=== PATIENT | male | born 1975 | race Caucasian/White ===

== ENCOUNTER 2019-12-04 08:58 | Outpatient (CLI) | payer OTHER, SELFPAY ==
[2019-12-04 09:16] LABS: Hematocrit 43.9 % (42.0-52.0); Hemoglobin 14.8 g/dL (14.0-18.0); Mean Corpuscular HGB Conc 33.7 g/dl (32-36); Mean Corpuscular Hemoglobin 29.8 pg (26-34); Mean Corpuscular Volume 88.3 fl (80-100); Mean Platelet Volume 9.2 fl (7.4-10.4); Platelet Count Result 200 k/mm3 (150-375); Red Blood Count 4.97 M/mm3 (4.6-6.20); Red Cell Distribution Width 12.2 % (11.5-14.5); White Blood Count 6.3 K/mm3 (4.5-10.0)
[2019-12-04 09:28] LABS: Blood Urea Nitrogen 16 mg/dL (9-20); Calcium 8.8 mg/dL (8.4-10.2); Carbon Dioxide 30 mmol/L (22-30); Chloride 102 mmol/L (98-107); Estimated Glomerular Filt Rate > 60; Glucose 92 mg/dL (75-110); Potassium 4.3 mmol/L (3.4-5.0); Sodium 138 mmol/L (137-145)
== END 2019-12-04 08:59 | disposition home or self-care (01) ==
PROVIDERS: PCP Family Medicine; Visit Provider Physician Assistant Medical
DX: N28.9 Disorder of kidney and ureter, unspecified (principal); D72.819 Decreased white blood cell count, unspecified
CPT/HCPCS: 36415; 80048; 85027

== ENCOUNTER 2020-09-29 11:48 | Outpatient (NON) | payer OTHER, SELFPAY ==
[2020-09-29 14:58] LABS: Influenza Control Positive
== END 2020-09-29 11:49 ==
LOC: ANHCOVIDDT 11:49
PROVIDERS: PCP Family Medicine; Visit Provider Nurse Practitioner Family
DX: R68.89 Other general symptoms and signs (principal); M79.10 Myalgia, unspecified site; R50.9 Fever, unspecified; J06.9 Acute upper respiratory infection, unspecified
CPT/HCPCS: 87502; 87804

== ENCOUNTER 2020-11-08 08:25 | Outpatient (CLI) | payer OTHER, SELFPAY ==
[2020-11-08 09:00] LABS: Alanine Aminotransferase 34 U/L (4-50); Albumin Level 4.4 g/dL (3.5-5.1); Alkaline Phosphatase 49 U/L (38-126); Anion Gap 6 mmol/L (8-16); Aspartate Amino Transferase 41 U/L (17-59); Bilirubin,Total 0.8 mg/dL (0.2-1.3); Blood Urea Nitrogen 16 mg/dL (9-20); Calcium 9.5 mg/dL (8.4-10.2); Carbon Dioxide 33 mmol/L (22-30); Chloride 100 mmol/L (98-107); Cholesterol 160 mg/dL (0-200); Estimated Glomerular Filt Rate > 60; Glucose 97 mg/dL (75-110); HDL Direct 47 mg/dL; Potassium 3.9 mmol/L (3.4-5.0); Sodium 139 mmol/L (137-145); Triglycerides 73 mg/dL (<150)
[2020-11-08 09:11] LABS: LDL Cholesterol Direct 84 mg/dL
[2020-11-08 09:28] LABS: Prostate Specific Antigen 0.2 ng/mL (< OR = 4.0)
== END 2020-11-08 08:26 | disposition home or self-care (01) ==
PROVIDERS: PCP Family Medicine; Visit Provider Physician Assistant Medical
DX: R07.89 Other chest pain (principal); Z12.5 Encounter for screening for malignant neoplasm of prostate; Z80.42 Family history of malignant neoplasm of prostate; Z13.220 Encounter for screening for lipoid disorders
CPT/HCPCS: 36415; 80053; 80061; 84153; 84443; G0103

== ENCOUNTER 2021-07-21 07:06 | Outpatient (CLI) | payer OTHER, SELFPAY ==
[2021-07-21 07:36] LABS: Anion Gap 10 mmol/L (8-16); Blood Urea Nitrogen 18 mg/dL (9-20); Calcium 9.6 mg/dL (8.4-10.2); Carbon Dioxide 31 mmol/L (22-30); Chloride 101 mmol/L (98-107); Cholesterol 179 mg/dL (0-200); Estimated Glomerular Filt Rate 59; Glucose 103 mg/dL (65-110); HDL Direct 46 mg/dL; Potassium 4.1 mmol/L (3.4-5.0); Sodium 142 mmol/L (137-145); Triglycerides 80 mg/dL (<150)
[2021-07-21 07:46] LABS: LDL Cholesterol Direct 93 mg/dL
[2021-07-21 08:03] LABS: Prostate Specific Antigen 0.3 ng/mL (< OR = 4.0)
== END 2021-07-21 07:07 | disposition home or self-care (01) ==
LOC: ANHLAB 07:07
PROVIDERS: PCP Family Medicine; Visit Provider Nurse Practitioner Family
DX: Z13.29 Encounter for screening for other suspected endocrine disorder (principal); Z12.5 Encounter for screening for malignant neoplasm of prostate; Z13.220 Encounter for screening for lipoid disorders; Z13.6 Encounter for screening for cardiovascular disorders; Z13.1 Encounter for screening for diabetes mellitus
CPT/HCPCS: 36415; 80048; 80061; 84153; 84443

== ENCOUNTER 2021-09-18 09:38 | Outpatient (CLI) | payer OTHER, SELFPAY ==
--- NOTE | 2021-09-18 11:00 | NEURO_ITS ---
Impression: # Complains of numbness. # Right Carpal Tunnel Syndrome. # Right ulnar neuropathy across the elbow. # Normal needle/EMG exam. # Clinical correlation recommended. Nerve Conduction Studies Anti Sensory Summary Table Stim Site NR Peak (ms) P-T Amp (?V) Site1 Site2 Delta-P (ms) Dist (cm) Osmany (m/s) Left Median Anti Sensory (2-3nd Digit) Wrist 3.0 62.3 Wrist 2-3nd Digit 3.0 14.0 47 Wrist 3.2 50.5 Wrist 2-3nd Digit 3.0 14.0 47 Right Median Anti Sensory (2-3nd Digit) Wrist 3.1 24.4 Wrist 2-3nd Digit 3.1 14.0 45 Wrist 3.1 50.6 Wrist 2-3nd Digit 3.1 14.0 45 Left Radial Anti Sensory (Base 1st Digit) Wrist 2.4 13.2 Wrist Base 1st Digit 2.4 0.0 Right Radial Anti Sensory (Base 1st Digit) Wrist 2.4 25.7 Wrist Base 1st Digit 2.4 0.0 Left Ulnar Anti Sensory (5th Digit) Wrist 2.7 39.4 Wrist 5th Digit 2.7 14.0 52 Right Ulnar Anti Sensory (5th Digit) Wrist 2.5 32.2 Wrist 5th Digit 2.5 14.0 56 Motor Summary Table Stim Site NR Onset (ms) O-P Amp (mV) Site1 Site2 Delta-0 (ms) Dist (cm) Osmany (m/s) Left Median Motor (Abd Poll Brev) Wrist 3.6 2.0 Elbow Wrist 4.8 29.0 60 Elbow 8.4 1.8 Right Median Motor (Abd Poll Brev) Wrist 4.3 2.0 Elbow Wrist 4.9 29.0 59 Elbow 9.2 1.6 Left Ulnar Motor (Abd Dig Minimi) Wrist 2.7 7.5 A Elbow Wrist 5.3 31.0 58 A Elbow 8.0 6.0 Right Ulnar Motor (Abd Dig Minimi) Wrist 2.7 7.6 A Elbow Wrist 5.6 30.0 54 A Elbow 8.3 6.1 B Elbow Wrist 3.9 24.0 62 B Elbow 6.6 5.1 F Wave Studies NR F-Lat (ms) L-R F-Lat (ms) Left Median (Mrkrs) (Abd Poll Brev) 27.53 0.29 Right Median (Mrkrs) (Abd Poll Brev) 27.82 0.29 Left Ulnar (Mrkrs) (Abd Dig Min) 28.97 0.10 Right Ulnar (Mrkrs) (Abd Dig Min) 28.88 0.10 EMG Side Muscle Nerve Root Ins Act Fibs Amp Dur Recrt Comment Right 1stDorInt Ulnar C8-T1 Nml Nml Nml Nml Nml Right Ext Indicis Radial (Post Int) C7-8 Nml Nml Nml Nml Nml Right Ext Digitorum Radial (Post Int) C7-8 Nml Nml Nml Nml Nml Right BrachioRad Radial C5-6 Nml Nml Nml Nml Nml Right PronatorTeres Median C6-7 Nml Nml Nml Nml Nml Right Abd Poll Brev Median C8-T1 Nml Nml Nml Nml Nml Left 1stDorInt Ulnar C8-T1 Nml Nml Nml Nml Nml Left Ext Indicis Radial (Post Int) C7-8 Nml Nml Nml Nml Nml Left Ext Digitorum Radial (Post Int) C7-8 Nml Nml Nml Nml Nml Left BrachioRad Radial C5-6 Nml Nml Nml Nml Nml Left PronatorTeres Median C6-7 Nml Nml Nml Nml Nml Left Abd Poll Brev Median C8-T1 Nml Nml Nml Nml Nml Right ABD Dig Min Ulnar C8-T1 Nml Nml Nml Nml Nml Left ABD Dig Min Ulnar C8-T1 Nml Nml Nml Nml Nml MTDD
== END 2021-09-18 09:39 | disposition home or self-care (01) ==
PROVIDERS: PCP Family Medicine; Visit Provider Nurse Practitioner Family
DX: G56.01 Carpal tunnel syndrome, right upper limb (principal); G56.21 Lesion of ulnar nerve, right upper limb
CPT/HCPCS: 95886; 95911

== ENCOUNTER → 2022-04-05 10:28 | Outpatient (CLI) | payer OTHER, SELFPAY ==
--- NOTE | ~2022-04-05 | XR_ITS ---
EXAMINATION: XR wrist LT min 3V DATE: 04/05/2022 11:00 INDICATION: Left wrist pain TECHNIQUE: Posteroanterior, ulnar deviation, oblique, and lateral views of the left wrist were obtain ed. COMPARISON: none FINDINGS: Bone alignment is normal. No fracture. Joint spaces are normal. Soft tissues are unremarkable. IMPRESSION: 1. Negative left wrist radiographs. Reviewed, dictated and finalized at location B.
== END ==
PROVIDERS: PCP Family Medicine; Visit Provider Nurse Practitioner Family
DX: M25.532 Pain in left wrist (principal)
CPT/HCPCS: 73110

== ENCOUNTER 2022-07-16 14:31 | Outpatient (CLI) | payer OTHER, SELFPAY ==
--- NOTE | ~2022-07-16 | MR_ITS ---
EXAMINATION: MR wrist LT wo con DATE: 07/16/2022 15:15 INDICATION: Left wrist pain TECHNIQUE: Magnetic resonance imaging (MRI) of the left wrist was performed without intravenous contr ast. Sequences performed include axial PD-weighted FSE and PD-weighted FS FSE, coronal PD-weighted FS FSE and T1-weighted SE, and sagittal PD-weighted FS FSE and PD-weighted FSE. COMPARISON: None FINDINGS: Intrinsic ligaments: Tiny perforation of the central membranous component of the scapholunate ligament. The more physiolog ically significant dorsal and volar components remain intact. The lunotriquetral ligament is normal. Triangular fibrocartilage complex (TFCC): There is a tear of the central fibrocartilaginous disc of the triangular fibrocartilage complex. The radial, foveal and ulnar styloid attachments along with the dorsal and volar radioulnar ligaments are normal. The ulnar collateral ligament, ulnotriquetral ligament and meniscal homologue are normal. Th e extensor carpi ulnaris tendon sheath is normal. Extensor wrist: Regions of magic angle artifact at the level of the wrist joint along the extensor carpi ulnaris and extensor digitorum longus tendons. Extensor tendons of the wrist are otherwise normal. No tenosynovit is. Flexor wrist: The flexor tendons of the wrist are normal. No abnormality in the carpal tunnel with normal median n erve. Guyon's canal: Guyon's canal including the ulnar nerve and artery are normal. Bones/other: Normal marrow signal. No fracture, erosions, avascular necrosis or abnormal marrow replacing process. Joint spaces are normal with no focal cartilage defects appreciated. IMPRESSION: 1. Tear of the central fibrocartilaginous disc of the triangular fibrocartilage complex. 2. Small perforation of the central membranous component of the scapholunate ligament which is of brandi btful clinical significance given the intact appearance of the dorsal and volar components of the lig ament. Reviewed, dictated and finalized at location A. IMPRESSION: 1. Tear of the central fibrocartilaginous disc of the triangular fibrocartilage complex. 2. Small perforation of the central membranous component of the scapholunate li gament which is of doubtful clinical significance given the intact appearance o f the dorsal and volar components of the ligament.
== END 2022-07-16 14:32 | disposition home or self-care (01) ==
PROVIDERS: PCP Family Medicine; Visit Provider Nurse Practitioner Family
DX: M25.532 Pain in left wrist (principal)
CPT/HCPCS: 73221

== ENCOUNTER 2022-09-02 08:08 | Outpatient (CLI) | payer OTHER, SELFPAY ==
[2022-09-02 09:17] LABS: Anion Gap 5 mmol/L (8-16); Blood Urea Nitrogen 13 mg/dL (9-20); Calcium 8.8 mg/dL (8.4-10.2); Carbon Dioxide 32 mmol/L (22-30); Chloride 103 mmol/L (98-107); Cholesterol 152 mg/dL (0-200); Estimated Glomerular Filt Rate > 60; Glucose 96 mg/dL (65-110); HDL Direct 46 mg/dL; Potassium 4.1 mmol/L (3.4-5.0); Sodium 140 mmol/L (137-145); Triglycerides 96 mg/dL (<150)
[2022-09-02 09:28] LABS: LDL Cholesterol Direct 69 mg/dL
[2022-09-02 09:46] LABS: Prostate Specific Antigen 0.3 ng/mL (< OR = 4.0)
== END 2022-09-02 08:09 | disposition home or self-care (01) ==
LOC: ANHLAB 08:09
PROVIDERS: PCP Family Medicine; Visit Provider Nurse Practitioner Family
DX: Z13.1 Encounter for screening for diabetes mellitus (principal); Z13.220 Encounter for screening for lipoid disorders; Z12.5 Encounter for screening for malignant neoplasm of prostate; Z13.29 Encounter for screening for other suspected endocrine disorder
CPT/HCPCS: 36415; 80048; 80061; 84153; 84443; G0103

== ENCOUNTER 2023-08-12 09:52 | Emergency (ER) | payer OTHER, SELFPAY ==
--- NOTE | ~2023-08-12 | XR_ITS ---
XR shoulder RT min 2V 08/12/2023 10:58 Indication: Right shoulder pain Procedure: 4 views right shoulder Comparison: No prior studies for comparison. Findings: There is anatomic alignment. No fracture, subluxation or dislocation. No significant soft t issue abnormality. No foreign bodies. Impression: 1: No acute fracture. Reviewed, dictated and finalized at location L. HERMAL INSTALLER Impression: 1: No acute fracture.
[2023-08-12 10:03] VITALS: BP 142/83; PULSE 64; RESP 16; TEMP 36.4; O2SAT 100
--- NOTE | 2023-08-12 10:49 | ED.GENADULT ---
HPI - General Adult General Chief complaint: Extremity Injury, Upper Stated complaint: R SHOULDER WORK INJURY Time Seen by Provider: 08/12/23 10:37 History of Present Illness HPI narrative: 48-year-old male presenting wrist department for evaluation of right shoulder pain. 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 the patient states the prisoner kept dropping his weight causing it to be supported by the patient's right shoulder. Patient denies any immediate pain from the incident but states this morning he had increased pain and discomfort. Patient reports pain is worsened with active motion of his right arm said Related Data Allergies Allergy/AdvReac Type Severity Reaction Status Date / Time Sulfa (Sulfonamide Allergy Unknown HIVES Verified 08/12/23 10:37 Antibiotics) sulfamethizole Allergy Unknown Unknown Verified 08/12/23 10:37 trimethoprim Allergy Unknown Unknown Verified 08/12/23 10:37 Review of Systems Review of Systems: All systems reviewed & are unremarkable except as noted in HPI and below PMFSH Past Medical History Medical History BMI 29.0-29.9,adult BMI 30.0-30.9,adult CTS (carpal tunnel syndrome) De Quervain's tenosynovitis, left Surgical History Surgical History History of carpal tunnel release right side- carpal tunnel & cubital tunnel release- 2021 History of facial surgery zygomatic arch reduction 2007 History of hand surgery left hand- ring finger ligament repair 2016 History of hip surgery arthroscopy- 2018 History of vasectomy 2013 Family History Family History Father Hypertension Family history of diabetes mellitus in first degree relative Cancer Diabetes mellitus Heart disease Mother Hypertension Family history of liver disease Diabetes mellitus Sibling No problems noted. 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 Gender identity (if verbalized by the patient): Male Exam Narrative: APPEARANCE: Well appearing, no pain, no distress, well-nourished. HEAD: normocephalic, atraumatic. EYES: PERRLA/EOMI, conjunctivae clear. NOSE: Normal no drainage EARS:TMS clear with good light reflex. THROAT: Pharynx clear, no exudate. NECK: Supple. No adenopathy, no masses. RESPIRATORY: Airway patent, respirations nonlabored. Clear to auscultation bilaterally, no rales, rhonchi, wheezing. CARDIOVASCULAR: Regular rate and rhythm without murmurs rubs or gallops. ABDOMINAL: Soft, nontender, nondistended, normal bowel sounds MUSCULOSKELETAL: Decreased range of motion of right shoulder, normal passive range of motion of the right shoulder, painful active range of motion of the right shoulder NEURO: Alert. Cranial nerves II through XII intact. Good gait. Good coordination SKIN: Warm, dry. Normal Color Course Course Emergency Course: 48-year-old male presents ED for evaluation of right shoulder pain x-ray was negative for acute fracture dislocation. Suspect internal rotator cuff injury. Patient was provided a sling for comfort update on the results of the x-rays. Patient was also encouraged on c
== END 2023-08-12 11:19 | disposition home or self-care (01) ==
LOC: ANHED 11:17
PROVIDERS: Emergency Provider Emergency Medicine; PCP Family Medicine
DX: S46.911A Strain of unspecified muscle, fascia and tendon at shoulder and upper arm level, right arm, initial encounter (principal); X50.0XXA Overexertion from strenuous movement or load, initial encounter
CPT/HCPCS: 73030; 99283; A4565

== ENCOUNTER → 2023-08-27 10:45 | Outpatient (CLI) | payer OTHER, SELFPAY ==
--- NOTE | ~2023-08-27 | MR_ITS ---
MRI of the right shoulder Technique: Axial proton-density fat-sat images, coronal proton density fat-sat and T2 fat-sat images, and sagittal T1-weighted and T2 fat-sat images were acquired. Clinical History: Rotator cuff tear Findings: There is [id number] AC joint degenerative change. Coracoclavicular, coracoacromial, a nd coracohumeral ligaments are intact. There is nonspecific edematous change at the rotator interval region. There is probable focal moderate tendinosis of the distal supraspinatus tendon insertion versus possi ble low to moderate grade partial thickness articular surface tear. No infraspinatus tear identified. Subscapularis tendon is intact. Tendon of the long head of the biceps is intact. No labral tear identified. Inferior glenohumeral ligament is intact, with mild thickening. No effusion or degenerative change of the glenohumeral joint. There is minimal fluid in the subacromial/subdeltoid bursa. No muscle atroph y or edema. Impression: Rotator interval edema and mild thickening of the inferior glenohumeral ligament. Correlate for adhes ivy capsulitis. Probable focal moderate tendinosis of the distal supraspinatus tendon rather than low to moderate gra de focal partial thickness tear. Minimal subacromial/subdeltoid bursitis. Reviewed, dictated and finalized at [facility]. ON CANDY MAKER Impression: Rotator interval edema and mild thickening of the inferior glenohumeral ligamen t. Correlate for adhesive capsulitis. Probable focal moderate tendinosis of the distal supraspinatus tendon rather th an low to moderate grade focal partial thickness tear. Minimal subacromial/subdeltoid bursitis.
== END ==
PROVIDERS: Visit Provider Orthopaedic Surgery
DX: M75.101 Unspecified rotator cuff tear or rupture of right shoulder, not specified as traumatic (principal)
CPT/HCPCS: 73221

== ENCOUNTER 2023-11-26 12:53 | Outpatient (CLI) | payer OTHER, SELFPAY ==
--- NOTE | ~2023-11-26 | MR_ITS ---
EXAMINATION: MR shoulder RT w con DATE: 11/26/2023 15:36 INDICATION: Strain of muscles and tendons of the right shoulder. Right shoulder pain. TECHNIQUE: Magnetic resonance imaging (MRI) of the right shoulder was performed without intravenous c ontrast after intra-articular injection of contrast (MR arthrogram). COMPARISON: Right shoulder MRI 08/27/2023, radiographs 08/12/2023 FINDINGS: Coracoacromial arch: The acromion undersurface is curved in morphology (type II). There is severe acromioclavicular joint osteoarthritis including inferiorly directed osteophytes. There is moderate subacromial/subdeltoid bu rsitis. Rotator cuff: There is moderate supraspinatus tendinopathy. There is a bursal sided partial-thickness tear of supra spinatus tendon measuring 5 mm anterior to posterior by 3 mm proximal to distal by 50% tendon thickne ss. There is mild infraspinatus tendinopathy. Teres minor tendon is normal. There is mild subscapular is tendinopathy. There is no asymmetric fatty atrophy of the rotator cuff muscle bellies. Biceps tendon and glenoid labrum: Biceps tendon is in bicipital groove. Intra-articular biceps tendon is normal. There is a tear of sup erior labrum from 11:00 to 12:00 (SLAP tear). Fluid: The glenohumeral joint is well distended by contrast. There is contrast in subacromial/subdeltoid bur sa, likely from direct injection. Bones/cartilage: There is cartilage surface irregularity of glenoid and humeral head. IMPRESSION: 1. Bursal-sided, partial-thickness tear of supraspinatus tendon. 2. Mild glenohumeral joint chondrosis. SLAP tear. 3. Severe acromioclavicular joint osteoarthritis. Reviewed, dictated and finalized at location E. Y PICKER MACHINE OPERATOR
--- NOTE | ~2023-11-26 | XR_ITS ---
EXAMINATION: XR fl inj shoulder RT - MR/CT DATE: 11/26/2023 13:52 INDICATION: Right rotator cuff strain TECHNIQUE: A time-out was performed to verify the patient's name, date of , and procedure to b e performed. The procedure including the risks, benefits, and alternatives was discussed with the pat ient. Risks discussed included bleeding and infection. The patient understood the risks and agreed to proceed. The skin overlying the right glenohumeral joint was prepped and draped in usual sterile fa shion. Anesthetic was administered with 1% lidocaine subcutaneously. A 22 G needle was advanced und er fluoroscopic guidance into the joint. Injection of 1 mL of Omnipaque 240 confirmed intra-articula r position of the needle. Subsequently, injectate consisting of 12 mL of 2:1:1 mixture of sterile sa line:Omnipaque 240:1% lidocaine mixed 200:1 with 529 mg/mL Multihance gadolinium contrast was injecte d with intra-articular administration confirmed with intermittent fluoroscopy. The needle was removed and the entry site was cleaned and dressed. There were no immediate complications. Fluoroscopy expo sure time was 3.2 minutes. The total number of images was 6. Total DAP was 0.807 mGycm^2 FINDINGS: Real-time fluoroscopy demonstrates the needle in the right glenohumeral joint. IMPRESSION: 1. Successful right glenohumeral joint injection of dilute gadolinium contrast mixture subsequent MRI arthrogram which will be dictated separately. Reviewed, dictated and finalized at location A. BUILDER
== END 2023-11-26 12:54 | disposition home or self-care (01) ==
LOC: ANHIMG 12:54
PROVIDERS: PCP Family Medicine; Visit Provider Orthopaedic Surgery
DX: S46.011A Strain of muscle(s) and tendon(s) of the rotator cuff of right shoulder, initial encounter (principal); X58.XXXA Exposure to other specified factors, initial encounter; M19.011 Primary osteoarthritis, right shoulder
CPT/HCPCS: 23350; 73222; 77002; A9577

== ENCOUNTER 2024-03-04 04:15 | Day surgery (SDC) | payer OTHER, SELFPAY ==
[2024-02-23 13:15] VITALS: BMI 29.9
--- NOTE | 2024-02-23 13:16 | PC.NURSE ---
Report to the Outpatient Waiting Room, entrance under the green pavilion located off [facility], at time _0600_ on date _[id number]_. Planned Procedure Time: _0730_. Time changes happen often and if your time is changed the preop area will call you the afternoon before. - You and your visitor will be asked to self-screen and do not enter if you have any COVID symptoms. - A mask is optional within the hospital at this time. Patients may have clear liquids (water, carbonated beverages, clear teas, apple juice) until 3 hours prior to surgery with a maximum of 20 ounces. - No food from midnight until time of surgery Take the following medications with a SIP of water the morning of surgery: __None DO NOT STOP ANY OF YOUR OTHER PRESCRIPTION MEDICATIONS PRIOR TO SURGERY ?EXCEPT THE FOLLOWING Medications to discontinue per physician __Stop Meloxicam 02-26-2024, Stop vitamins [id number] Please no make-up, nail armenian, hairspray, perfume, deodorant, or body powder the day of surgery. No jewelry (including any body piercings) or valuables the day of surgery, leave them at home. Please take a shower or bath the night before, or the morning of, surgery with an antibacterial soap. Wear comfortable, loose fitting clothing. - Jewelry must be removed prior to entering the operating room. Rings and piercings that are not removed may be cut off. - The hospital will not accept responsibility for valuables. - Please leave all valuables, including medications, at home the day of surgery. If you are going home after surgery, a licensed route delivery driver must drive you home. - NO public transportation without another adult if you receive anesthesia. - We recommend that an adult stay with you for 24 hours following discharge. - We also recommend that you do not drive, make important decision, drink alcoholic beverages, or take any drugs that were not prescribed by your health care provider for at least 24 hours after your discharge time. Follow any additional instructions given to you from your surgeon. If you or anyone in your household have experienced Covid symptoms in the past week, please notify your surgeon or the nurse liaison at the phone number below for possible testing. Telephone instructions given to _Jose__and asked if any additional questions and then verbalized understanding. Patient advised to call surgeon office or pre surgery nurse liaison [phone] if any additional questions.
--- NOTE | 2024-03-03 12:50 | PM.IMHP ---
H&P: HPI History of Present Illness Date/Time: 03/03/24 12:50 Chief Complaint: Right shoulder pain Narrative: 48-year-old 6.5 months status post right shoulder injury at work. Pain right shoulder. Weakness and inability to lift. MRI shows labral and rotator cuff tear. No improvement with therapy, activity modification, time. Review of Systems Constitutional: Constitutional: Denies fever(s) Eyes: Eyes: Denies blurry vision ENT: Reports Normal hearing present Cardiovascular: Cardiovascular: Denies chest pain and Denies dyspnea Respiratory: Respiratory: Denies dyspnea and Denies wheezing Gastrointestinal: Gastrointestinal: Denies abdominal pain Genitourinary: Genitourinary: Denies urinary urgency Musculoskeletal: Musculoskeletal: Reports as per HPI and Denies numbness Integumentary/Breasts: Skin/Breast: Denies changing lesions and Denies sores Neurologic: Reports Normal hearing present, Denies behavioral changes, Denies confusion, Denies numbness and Denies convulsions Psychiatric: Psychiatric: Denies behavioral changes, Denies confusion and Denies hallucinations Endocrine: Endocrine: Denies heat intolerance Hematologic/Lymphatic: Hematologic/Lymphatic: Denies easy bleeding Allergic/Immunologic: Allergic/Immunologic: Denies wheezing PMF Past Medical History Medical History CTS (carpal tunnel syndrome) De Quervain's tenosynovitis, left Hip pain, left Labral tear of long head of right biceps tendon Myalgia Right shoulder pain Rotator cuff tear, right Strain of rotator cuff of right shoulder Surgical History Surgical History History of carpal tunnel release right side- carpal tunnel & cubital tunnel release- 2021 History of facial surgery zygomatic arch reduction 2008 History of hand surgery left hand- ring finger ligament repair 2016 History of hip surgery arthroscopy- 2018 History of vasectomy 2013 Family History Family History Father Hypertension Family history of diabetes mellitus in first degree relative Cancer Diabetes mellitus Heart disease Mother Hypertension Family history of liver disease Diabetes mellitus Sibling No problems noted. 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 Gender identity (if verbalized by the patient): Male Spiritual care concerns: No Meds Home Medications and Allergies Home Medications Medication Instructions Recorded Confirmed Type meloxicam 15 mg tablet 15 mg PO DAILY #90 tabs 12/17/23 02/23/24 Rx cetirizine 10 mg tablet (Zyrtec) 10 mg PO DAILY 02/23/24 02/23/24 History cholecalciferol (vitamin D3) 25 25 mcg PO DAILY 02/23/24 02/23/24 History mcg (1,000 unit) tablet (Vitamin D3) multivitamin with minerals 1 tablet PO DAILY 02/23/24 02/23/24 History Allergies Allergy/AdvReac Type Severity Reaction Status Date / Time Sulfa (Sulfonamide Allergy Unknown HIVES Verified 02/23/24 13:07 Antibiotics) sulfamethizole Allergy Unknown Unknown Verified 02/23/24 13:07 trimethoprim Allergy Unknown Unknown Verified 02/23/24 13:07 Exam Const: Genera
[2024-03-04] VITALS (10 sets, daily range): BP systolic 90–143; BP diastolic 61–96; PULSE 63–79; RESP 12–19; TEMP 36.2–36.8; O2SAT 97–100
[2024-03-04] MEDS: ACETAMINOPHEN 500 MG TABLET 1000 MG PO (07:00)
[2024-03-04] MEDS: KETOROLAC 15 MG/ML VIAL (*BKC) IV PUSH (07:00)
[2024-03-04] MEDS: LACTATED RINGERS 1,000 ML 30 ML IV CONT ×2 (07:00→10:49)
--- NOTE | 2024-03-04 07:04 | WPDANESEPPF ---
Anes - Initial Pre Proc Eval Procedure: Operation Date: 03/04/24 07:30 Proposed Procedures p Right Shoulder Arthroscopy with Debridement, Rotator Cuff and Labral Repair, Proceed as indicated - Priyank Alexander MD Date/Time: 03/04/24 07:04 Surgeon: Priyank Alexander MD Pre Op Diagnosis: Rt Rot Cuff Tear, Labral Tear, Shoulder pain Patient Data Age: 48 Gender: M Height: 1.83 m Weight: 100 kg Allergies Allergy/AdvReac Type Severity Reaction Status Date / Time Sulfa (Sulfonamide Allergy Unknown HIVES Verified 03/04/24 07:16 Antibiotics) sulfamethizole Allergy Unknown Unknown Verified 03/04/24 07:16 trimethoprim Allergy Unknown Unknown Verified 03/04/24 07:16 Home Medications Medication Instructions Recorded Confirmed Type meloxicam 15 mg tablet 15 mg PO DAILY #90 tabs 12/17/23 03/04/24 Rx cetirizine 10 mg tablet (Zyrtec) 10 mg PO DAILY 02/23/24 02/23/24 History cholecalciferol (vitamin D3) 25 25 mcg PO DAILY 02/23/24 03/04/24 History mcg (1,000 unit) tablet (Vitamin D3) multivitamin with minerals 1 tablet PO DAILY 02/23/24 03/04/24 History Patient hx anesthesia problems: other (One time in the long past, pt woke up combative. ) Family hx anesthesia problems: none Results Review: All pre-operative results and documents have been reviewed as part of the pre-operative evaluation. [facility] Past Medical History Medical History CTS (carpal tunnel syndrome) De Quervain's tenosynovitis, left Hip pain, left Labral tear of long head of right biceps tendon Myalgia Right shoulder pain Rotator cuff tear, right Strain of rotator cuff of right shoulder Surgical History Surgical History History of carpal tunnel release right side- carpal tunnel & cubital tunnel release- 2021 History of facial surgery zygomatic arch reduction 2007 History of hand surgery left hand- ring finger ligament repair 2016 History of hip surgery arthroscopy- 2018 History of vasectomy 2013 Family History Family History Father Hypertension Family history of diabetes mellitus in first degree relative Cancer Diabetes mellitus Heart disease Mother Hypertension Family history of liver disease Diabetes mellitus Sibling No problems noted. Social History Social History Smoking status: Never smoker Second hand tobacco smoke exposure: No Alcohol intake: current Drinks per week: 8 Substance use: never Substance use type: does not use Lack of Transportation: No Lack of Food: Never True Current Housing: I Have Housing Concerned About Future Housing: No Difficulty Paying Gas/Electric Bills: No Difficulty Paying for Meds: No Currently Unemployed: No Education: High School Diploma/GED Difficulty w/ Childcare or Family Care: No Living arrangements: with family Occupation/Education: occupation Additional occupation/education comments: [employer] Gender identity (if verbalized by the patient): Male Spiritual care concerns: No Anes - Eval Final PreProcedure Day of Procedure 03/04/24 07:04 Patient weight: normal Heart: regular rate and rhythm Lungs: clear to auscultation Airway: Mallampati scale class II Neurological: alert and oriented Last oral intake: >/= 8 hours ASA classification: II Emergent: no Anesthetic plan: proceed Anesthesia type and monitoring: general ETT and standard monitoring Results Review: All pre-operative results and documents have been reviewed as part of the pre-operative evaluation. ELE/CPAP setting 8, pt is compliant. Informed Consent: The patient's anesthetic plan and its attendant risks and benefits were discussed with the patient/family/POA. Questions were solicit
--- NOTE | 2024-03-04 07:17 | WPDHPUPDATE1 ---
History and Physical Update Update Date/Time: 03/04/24 07:17 History and Physical has been reviewed, including an updated exam of the patient. There are NO changes in the patient's condition. Risks, benefits, and alternatives have been discussed and questions answered. Patient agrees to proceed with procedure.
[2024-03-04] MEDS: ceFAZolin 2 GM/D5W 50 ML 2 GM/50 ML BAG IVPB (07:48)
[2024-03-04] MEDS: BUPIVACAINE/EPINEPHRINE 0.5% 10 ML VIAL INFILTRATE (08:21)
--- NOTE | 2024-03-04 10:53 | W.PM.PROC2 ---
Procedure Note - Detailed Date of Procedure 03/04/24 Pre-op Diagnosis Rt Rot Cuff Tear, Labral Tear, Shoulder pain Post-op Diagnosis Same Procedure Performed right shoulder arthroscopy with debridement, labral repair, arthroscopic rotator cuff repair Surgeon Priyank Alexander MD Lathe Spotter 1st emergency veterinary assistant Anesthesia General Indications 48-year-old gentleman injury to right shoulder. MRI demonstrates labral tear and rotator cuff tear as well as inflammation. Patient has failed conservative treatment including therapy, injections, medication. Presents for operative treatment. Findings Superior and anterior labral tear with glenohumeral ligament attachment. Supraspinatus rotator cuff tear 1 cm. Description of Procedure Patient is a 48-year-old man with right shoulder pain. Failed physical therapy. An MRI demonstrates tear of the biceps Attachment of the superior and anterior labrum and rotator cuff tear. Presents now for operative treatment. What was done: Patient identified in the preoperative holding. Informed consent given. Operative extremity marked. Patient received intravenous antibiotics. regional anesthetic block for the right shoulder performed by the anesthesia team. Patient brought to the operating room where underwent general anesthetic by anesthesia team. Positioned supine on operating room table. Time-out performed confirming the patient, site of the surgery and the plan. Patient was then positioned in the beach chair position with careful securing of the head and neck. Right shoulder was then prepped and draped usual sterile surgical fashion using a ChloraPrep skin solution. Local anesthetic with 0.5% Marcaine with epinephrine was used at the portal sites. Standard posterior arthroscopy portal position with a 22 gauge spinal needle and infiltrating of the joint with saline. Eleven blade knife used to incise the skin and blunt penetration of the soft tissue and posterior capsule. Camera and inflow started through this portal. The shoulder was inspected and findings were noted. Anterior portal was then made using positioning from a 22 gauge spinal needle, 11 blade knife for the skin and blunt penetration of the anterior capsule. 4.5 mm arthroscopic shaver introduced and a debridement of the shoulder joint was performed including the glenoid and humeral head, undersurface of the rotator cuff, labrum and the rotator cuff tear site itself. Arthroscopic wand introduced and bleeding points were coagulated. Any excess synovitis was removed with the Wand. The labrum was then repaired. 2 fiber tack anchors 1.9 mm each replaced in the superior and anterior glenoid rim through the anterior portal. Suture was shuttled around the labrum and repair down to the fiber tack anchor. Good repair was noted. Portion of the attachment of the middle glenohumeral ligament was repaired with the labrum. Shoulder was taken through full range of motion and no constrainment or loss of motion noted. rotator cuff repair was then performed a lateral portal was made under visualization with a spinal needle. 11 blade knife used for the skin. The rotator cuff anchor was then placed at the junction humeral head and the lateral humerus under direct visualization. FiberTape was then shuttled through the rotator cuff. The arthroscope was then positioned into the subacromial space. Shaver was introduced and debridement of the subacromial bursa was performed. From this position the full-thickness rotator cuff was able to be better visualized. Sutures had been passed through the rotator cuff and were tied down to repair of the cuff to the anchor. Good repair noted. Subcutaneous tissue repaired with 3 0 Monocryl interrupted suture and the skin repaired with 3 0 Monocryl subcuticular stitch. Steri-Strips applied followed by sterile dressing. Patient then awoke from anesthesia, extubated and taken to the recovery room in stable condition. All sponge needle and instru
--- NOTE | 2024-03-04 11:25 | SUR.PHASEI ---
Simple mask removed at 1125.
[2024-03-04] MEDS: oxyCODONE HCL (*CRX) 5 MG TAB IR PO (12:05)
--- NOTE | 2024-03-08 09:44 | P.PCNANE_ITS ---
Anes - Peripheral Nerve Block Date/Time: 03/08/24 09:44 This note entered late to EMR as I inadvertently entered the procedure note unde r a different and incorrect patient. This is the correct procedure note entered based on the procedure note. I have discussed with the patient/family/POA the placement of a peripheral nerve block for post-operative pain management, including associated risks, benefits, complications, and side effects. Alternative methods of post-operative analgesia were detailed. Questions were solicited and answers provided to the satisfaction of the patient/family/POA. Time-Out: A pre-procedural Time-Out was completed immediately before starting the procedure and confirmed: Patient Identification, Site, Procedure, Patient Position and the Availability of Requisite Equipment. Clinical Indications: Acute post-operative pain management requested by the operative surgeon. Nerve Block Insertion Note Anes-nerve block: interscalene right Patient position: supine Skin prep: chlorhexidine Needle: 22 gauge, stimulating, insulated echogenic needle. Needle length: 80 mm Injectate: other (Bupiv 0.5%, 15 mls. ) Observations: tolerated well Complications: none Procedure start time:: 731 Procedure end time::
== END 2024-03-04 12:42 | disposition home or self-care (01) ==
PROVIDERS: PCP Family Medicine; Visit Provider Orthopaedic Surgery
PROC: (CPT 29805; principal; 2024-03-04 07:30)
DX: S46.111A Strain of muscle, fascia and tendon of long head of biceps, right arm, initial encounter (principal); M75.101 Unspecified rotator cuff tear or rupture of right shoulder, not specified as traumatic
CPT/HCPCS: 29827; 29807; A4565; A9270; C1713; J0330; J0690; J1100; J1170; J1885; J2250; J2405; J2704; J3010; J7120

== ENCOUNTER 2024-11-13 07:27 | Outpatient (CLI) | payer OTHER, SELFPAY ==
--- OUTSIDE RECORDS SUMMARY | 2024-11-13 07:30 | XMS_ITS | Clinical Summary ---
[facility] Address [address] [place] [address] Phone Care Team Providers Care Production Painter Name Role Phone Unavailable Primary Care Provider Unavailabl e Allergies Active Allergy Reactions Criticality Noted Date Comments Bactrim Other (see Comments) Medications ibuprofen (MOTRIN) 800 MG PO TABS Take 800 mg by mouth every 8 hours as needed. Active hydrocodone-hermlio taminophen (NORCO) 5-325 MG PO TABS Take 1-2 Tabs by mouth. Every 4-6 hours as needed Active ropinirole (REQUIP) 1 MG PO TABS Take 1 Tab by mouth as needed.At bedtime. Started 10/10/09. 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 Gender Identity Not on file Sexual Orientation Not on file Plan of Treatment Health Maintenance Due Date Last Done Comments Hepatitis C Virus (HCV) Screening 1974 TdaP Immunization 1974 Hepatitis B Immunization (1 of 3 - 19+ 3-dose series) 1993 Colonoscopy 2019 Colorectal Cancer Screening 2019 Influenza Immunization (#1) 2024 SARS-COV-2 Immunization ( - season) 2024 Cologuard 2024 Immunochemical Fecal Occult Blood 2024 Pneumococcal Immunization (5 0+ years) (1 of 1 - PCV) 2024 Zoster Immunization (1 of 2) 2024 Respiratory Syncytial Virus (RSV) Immunization (Adult) (1 - 1-dose 75+ series) 2049 Meningococcal Immunization (ACWY) Aged Out No longer eligible based on patient's age to complete this topic Pneumococcal Immunization Combined Aged Out No longer eligible based on patient's age to complete this topic Rotavirus Immunization Aged Out No lo nger eligible based on patient's age to complete this topic
--- OUTSIDE RECORDS SUMMARY | 2024-11-13 07:30 | XMS_ITS | Clinical Summary ---
Author Organization [facility] Address [address] [place] [address] Care Team Providers Care Music Therapist Name Role Phone Ike Juarez MD Primary Care Provider [phone] Allergies Active Allergy Reactions Criticality Noted Date Comments Sulfa (Sulfonamide Antibiotics) Rash,Redness Medium Sulfanilamide Other (See comments) Reaction: Unknown, Medications ascorbic acid (VITAMIN C) 500 mg tablet,chewable Take 1 tablet by mouth 2 times daily until finished 60 tablet/chew tab 7 Active ondansetron (ZOFRAN) 4 mg tablet Take 1-2 tablets by mouth every 8 hours as needed for nausea or vomitting 20 tablet 7 Active HYDROcodone-hermilo taminophen (NORCO) 5-325 mg per tabletIndicatio ns:Pain Take 1-2 tablets by mouth every 4-6 hours as needed for pain 63 tablet 7 Active cyclobenzaprine (FLEXERIL) 10 mg tablet Take 10 mg by mouth every 6 (six) hours as needed. 7 Active Active Problems Problem Noted Date Diagnosed Date Non-recurrent bilateral ingu inal hernia without obstruction or gangrene 03/29/2021 Umbilical hernia without obstruction and without gangrene 03/29/2021 Labral tear of hip joint 06/11/2017 Abdominal hernia 03/31/2017 Surgical History Surgery Date Site/Laterality Comments OTHER SURGICAL HISTORY Upper Zygomatic arch reduction OTHER SURGICAL HISTORY Upper zygomatic arch fracture VASECTOMY CLOSED REDUCTION ZYGOMATIC A RCH FRACTURE TENDON REPAIR Medical History Medical History Date Comments MRSA (methicillin resistant Staphylococcus aureu s) PONV (postoperative nausea and vomiting) Sleep apnea CPAP Family History Medical History Relation Name Comments Diabetes Father Diabetes mellit us; Diabetes Mother Diabetes mellit us; Diabetes Other Family history of Diabetes mellitus; Relation Name Status Comments Father Mother Other Social History Tobacco Use Types Packs/Day Years Used Date Smoking Tobacco: Never Smokeless Tobacco: Never Alcohol Use Standard Drinks/Week Comments Yes 0 (1 standard drink = 0.6 oz pur e alcohol) occasionally Sex and Gender Information Value Date Recorded Sex Assigned at Not on file 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 Gender Identity Not on file Sexual Orientation Not on file Obstetrics History Last Filed Vital Signs Vital Sign Reading Time Taken Comments Blood Pressure 140/78 11/24/2017 11:13 AM ART TRACER Pulse 55 11/24/2017 11:13 AM ART TRACER Temperature 36.3 C (97.4 F) 09/04/2017 1:13 PM ART TRACER Respiratory Rate 18 09/04/2017 2:06 PM ART TRACER Oxygen Saturation 100% 09/04/2017 1:13 PM ART TRACER Inhaled Oxygen Concentration - - Weight 88 kg (194 lb) 11/24/2017 11:13 AM ART TRACER Height 182.9 cm (6') 11/24/2017 11:13 AM ART TRACER Body Mass Index 26.31 11/24/2017 11:13 AM ART TRACER Plan of Treatment Not on file Insurance [employer] [facility] [employer] OPEN ACCESS Care Teams Music Therapist Relationship Specialty Start Date End Date Ike Juarez MD PCP - General 09/06/13
--- OUTSIDE RECORDS SUMMARY | 2024-11-13 07:30 | XMS_ITS | Referral Summary ---
Author Organization [facility] Address [address] [place] [address] Care Team Providers Care Pool Installer Name Role Phone Ike Juarez MD Primary Care Provider [phone] Allergies Active Allergy Reactions Criticality Noted Date [...] mouth every 6 (six) hours as needed. Active Active Problems Problem Noted Date Diagnosed Date Non-recurrent bilateral ingu inal hernia without obstruction or gangrene 03/29/2021 Umbilical hernia without obstruction and without gangrene 03/29/2021 Labral tear of hip joint 06/11/2017 Abdominal hernia 03/31/2017 Social History Tobacco Use Types Packs/Day Years Used Date Smoking Tobacco: Never Smokeless Tobacco: Never Alcohol Use Standard Drinks/Week Comments Yes 0 (1 standard drink = 0.6 oz pur e alcohol) occasionally Sex and Gender Information Value Date Recorded Sex Assigned at Not on file Legal Sex Male 11:38 AM [employer] Gender Identity Not on file Sexual Orientation Not on file Last Filed Vital Signs Vital Sign Reading Time Taken Comments Blood Pressure 140/78 11/24/2017 11:13 AM [employer] Pulse 55 11/24/2017 11:13 AM [employer] Temperature 36.3 C (97.4 F) 09/04/2017 1:13 PM [employer] Respiratory Rate 18 09/04/2017 2:06 PM [employer] Oxygen Saturation 100% 09/04/2017 1:13 PM [employer] Inhaled Oxygen Concentration - - Weight 88 kg (194 lb) 11/24/2017 11:13 AM [employer] Height 182.9 cm (6') 11/24/2017 11:13 AM [employer] Body Mass Index 26.31 11/24/2017 11:13 AM [employer] Plan of Treatment Not on file Insurance [employer] [facility] [employer] OPEN ACCESS [employer] OPEN ACCESS Care Teams Pool Installer Relationship Specialty Start Date End Date Ike Juarez MD PCP - General 09/06/13
[2024-11-13 07:40] LABS: Hematocrit 46.1 % (42.0-52.0); Hemoglobin 15.6 g/dL (14.0-18.0); Mean Corpuscular HGB Conc 33.8 g/dl (32-36); Mean Corpuscular Hemoglobin 29.3 pg (26-34); Mean Corpuscular Volume 86.5 fl (80-100); Mean Platelet Volume 9.3 fl (7.4-10.4); Platelet Count Result 240 k/mm3 (150-375); Red Blood Count 5.33 M/mm3 (4.6-6.20); Red Cell Distribution Width 12.2 % (11.5-14.5); White Blood Count 6.8 K/mm3 (4.5-10.0)
[2024-11-13 07:51] LABS: Alanine Aminotransferase 24 U/L (6-50); Albumin Level 4.5 g/dL (3.5-5.1); Alkaline Phosphatase 69 U/L (38-126); Anion Gap 7 mmol/L (4-12); Aspartate Amino Transferase 30 U/L (17-59); Bilirubin,Total 1.1 mg/dL (0.2-1.3); Blood Urea Nitrogen 19 mg/dL (9-20); Calcium 9.2 mg/dL (8.4-10.2); Carbon Dioxide 30 mmol/L (22-30); Chloride 101 mmol/L (98-107); Cholesterol 155 mg/dL (0-200); Estimated Glomerular Filt Rate > 60; Glucose 106 mg/dL (65-110); HDL Direct 57 mg/dL; Potassium 4.6 mmol/L (3.4-5.0); Sodium 138 mmol/L (137-145); Triglycerides 57 mg/dL (<150)
[2024-11-13 08:01] LABS: LDL Cholesterol Direct 67 mg/dL
[2024-11-13 08:20] LABS: Prostate Specific Antigen 0.2 ng/mL (< OR = 4.0)
== END 2024-11-13 07:28 | disposition home or self-care (01) ==
LOC: ANHLAB 07:28
PROVIDERS: PCP Family Medicine; Visit Provider Family Medicine
DX: R53.83 Other fatigue (principal); Z13.220 Encounter for screening for lipoid disorders; Z13.6 Encounter for screening for cardiovascular disorders; Z12.5 Encounter for screening for malignant neoplasm of prostate
CPT/HCPCS: 36415; 80053; 80061; 84153; 84443; 85027; G0103